=== PATIENT | female | born 1995 | race Caucasian/White ===

== ENCOUNTER 2017-09-30 23:45 | Emergency (ER) | payer OTHER ==
[~2017-09-30 23:45] MED LIST: AMBIEN5 M1 PO; BENADRYL ALLERG25 MG PO; CITRANATAL HARM1 SG1 PO; CYCLOBENZAPRINE10 M3 PO; FLEXERIL 5MG TAB5 MG PO; IBU800 MG PO; IBUPROFEN600 M1 PO; IBUPROFEN800 M1 PO; IBUPROFEN800 MG PO; MOTRIN 800MG T800 MG PO; MOTRIN800 MG PO; NORCO 325 MG-51 TAB PO; ONDANSETRON HYDR8 MG PO; PRENATAL1 TA2 PO; PROAIR HFA0.09 MG/Ac; VICODIN 300 MG-1 TAB PO; ZOFRAN ODT4 MG PO
[2017-09-30 23:56] VITALS: BP 126/85
[2017-10-01] MEDS ORDERED: BENADRYL25 MG PO (00:04)
[2017-10-01] MEDS ORDERED: PERMETHRIN60 GM TOP (00:04)
--- NOTE | 2017-10-01 00:04 | ED SKIN/ALLERGY COMPLAINT ---
History of Present Illness General Chief Complaint: General Adult Stated Complaint: "SCABIES" Source: patient, family Exam Limitations: no limitations Vital Signs & Intake/Output Vital Signs & Intake/Output Vital Signs Date Time Temp Pulse Resp B/P B/P Pulse O2 O2 Flow FiO2 Mean Ox Delivery Rate 09/30 2356 97.8 76 20 126/85 99 Room Air Allergies Coded Allergies: NO KNOWN ALLERGIES (07/25/17) Reconcile Medications diphenhydrAMINE HCl (Benadryl) 25 MG CAP 1 CAP PO Q6 PRN itching Ibuprofen 800 MG TABLET 1 TAB PO TID PAIN Ibuprofen 800 MG TABLET 1 TAB PO TID PRN pain Permethrin 5 % CREAM..G. 1 DANNY TOP ONCE scabies massage into skin from head to soles of feet one time, leave on for 8-14 hours then remove by thorough washing Triage Note: PATIENT ARRIVES TO ER WITH C/O SCABIES AND ITCHING. Triage Nurses Notes Reviewed? yes Onset: Gradual Duration: day(s): Timing: recent history Severity: moderate Location: genitalia : No Patient currently breastfeeds: No HPI: 21-year-old female presents emergency department complaining of exposure to scabies. Patient states that her daughter who is with her currently was treated at immunology teacher's office for scabies. Patient applied permethrin cream to daughter the daughter has persistent itching. Patient also reports cleaning linens in the home. Patient and daughter both have generalized itching and scattered bumps. Patient reports itching mainly to her arms. No fevers, chills , abdominal pain, vomiting. (Yumi Dominguez) Past History Travel History Traveled to [place] past 21 day No Medical History Any Pertinent Medical History? see below for history Neurological: MIGRAINES EENT: NONE Cardiovascular: hypertension, hyperlipidemia Respiratory: asthma Gastrointestinal: GASTROENTERITIS Hepatic: NONE Renal: NONE Musculoskeletal: NONE Psychiatric: anxiety, depression Endocrine: NONE Blood Disorders: NONE Cancer(s): NONE DRIVER WHEELCHAIR/Reproductive: miscarriage Surgical History Surgical History: non-contributory, N Psychosocial History What is your primary language Spanish Tobacco Use: Quit >30 days ago Family History Hx Contributory? No (Yumi Dominguez) Review of Systems Review of Systems Constitutional: Reports: no symptoms. EENTM: Reports: no symptoms. Respiratory: Reports: no symptoms. Cardiovascular: Reports: no symptoms. GI: Reports: no symptoms. Genitourinary: Reports: no symptoms. Musculoskeletal: Reports: no symptoms. Skin: Reports: see HPI. Neurological/Psychological: Reports: no symptoms. Hematologic/Endocrine: Reports: no symptoms. Immunologic/Allergic: Reports: no symptoms. All Other Systems: Reviewed and Negative (Yumi Dominguez) Physical Exam Physical Exam General Appearance: well developed/nourished, no apparent distress, alert, awake Head: atraumatic, normal appearance Eyes: Bilateral: normal appearance. Ears, Nose, Throat: hearing grossly normal Neck: normal inspection, supple, full range of motion Respiratory: no respiratory distress Back: normal inspection, normal range of motion Extremities: normal range of motion Neurologic/Psych: awake, alert, oriented x 3 Skin: fine scattered papules with excoriations, no swelling/warmth/tenderness Skin Problem Location: generalized (Yumi Dominguez) Progress Differential Diagnosis: abscess/cellulitis, allergic reaction, contact dermatitis, drug reaction, shingles, urticaria, scabies Plan of Care: Patient has generalized rash with excoriations, consistent with scabies. They were educated on permethrin cream and cleaning linen throughout the house. They were informed that they're contagious until treated, it was recommended that the other people living in their home seek medical attention to prevent spread of scabies. Patient understands and agrees with plan of care. (Yumi Dominguez) Departure Departure Disposition: HOME OR SELF CARE Condition: Stable Clinical Impression Primary Impression: Scabies Referrals: Patient Has No Primary Care Dr (PCP/Family) Additional Instructions: Apply permethrin cream as directed. Apply and leave on for 8-14 hours then rinse off. Scabies is contagious. Everyone in your household should be evaluated by medical professional. Wash all closed and bedding in hot water as they may contain scabies/eggs. Take benadryl as prescibed as needed for cream. Return with worsening symptoms or concerns. Please note that there might be incidental findings in your evaluation that are unrelated to the current emergency department visit. Please notify your primary care doctor about this emergency department visit in order to obtain and review all of the testing performed so that these incidental findings can be monitored as needed. If you had an x-ray performed, please understand that some fractures may not be seen on the initial set of x-rays. If your symptoms persist you might need a repeat set of x-rays to check for such a fracture. If you had a laceration evaluated, please understand that foreign bodies such as glass or wood may not be visible to the naked eye or on plain x-rays. If the wound becomes red, swollen, increasingly more painful or if there is any drainage from the wound, please have it reevaluated by a physician for the possibility of a retained foreign body. If you're unable to follow up as outlined in the discharge instructions please return to the emergency department. Thank you for choosing the [facility] Emergency Department for your care. It was a pleasure to serve you today. Departure Forms: Customer Survey General Discharge Information Prescriptions: Current Visit Scripts Permethrin 1 DANNY TOP ONCE #60 GM massage into skin from head to soles of feet one time, leave on for 8-14 hours then remove by thorough washing diphenhydrAMINE HCl (Benadryl) 1 CAP PO Q6 PRN itching #30 CAP (Margo RAMIREZ,Yumi Valentine) PA/WOODWORKING MACHINE [employer]EDER Co-Sign Statement Statement: ED Attending supervision documentation- [] I saw and evaluated the patient. I have also reviewed all the pertinent lab results and diagnostic results. I agree with the findings and the plan of care as documented in the PA's/WOODWORKING MACHINE FEEDER's documentation. [x] I have reviewed the ED Record and agree with the PA's/WOODWORKING MACHINE FEEDER's documentation. [] Additions or exceptions (if any) to the PAs/WOODWORKING MACHINE FEEDER's note and plan are summarized below: [] (Kevin DAWSON,Rome Gunderson)
== END 2017-10-01 00:11 ==
LOC: ERH 23:45
DX: B86 Scabies (principal)